=== PATIENT | female | born 1955 | race African-American/Black ===

== ENCOUNTER 2019-12-24 04:56 | Emergency (ER) | payer OTHER ==
[2019-12-24 06:10] VITALS: TEMP 99.1; BMI 35.5
[2019-12-24] MEDS ORDERED: ACETAMINOPHEN 1000 MG/100 ML VIAL (NON FORMULARY) IVPB ONE (07:35)
[2019-12-24] MEDS ORDERED: METOCLOPRAMIDE HCL INJECTION 10 MG/2 ML VIAL IVPUSH ONE (07:35)
[2019-12-24] MEDS ORDERED: ACETAMINOPHEN INJECTION 100 ML IVPB ONE (07:39)
--- NOTE | 2019-12-24 07:47 | PDOC ---
History of Present Illness - General Chief Complaint: Headache Stated Complaint: HEAD PAIN Time Seen by Provider: 12/24/19 07:08 History Source: Patient Exam Limitations: No Limitations - History of Present Illness Initial Comments: 12/24/19 07:43 63y F with PMH of CAD s/p stent x2, HTN, Asthma, DM, presenting to ED for SHAFER. Pt has been having this headache for a year but got worse last night approximately 12h ago. Pt says she was laying in bed when it happened. She describes the pain as sharp, shooting pains from the forehead to the occipital region. She was taking Tylenol before but it did not help this time. She denies changes in vision, photophobia, phonophobia, thunderclap SHAFER, head injuries, weakness, numbness/tingling, ataxia, facial pain, abdominal pain, n/v, chest pain, sob, fevers/chills. She recently had cough, congestion and vomiting earlier this week. Has not seen neurology. PMD: At [place] PMH: see hpi PSH: stent, back surgery, knee surgery Meds: see med rec Allergies: nkda Social: smokes 2 cigarettes/day Past History - Past Medical History Allergies/Adverse Reactions: Allergies Allergy/AdvReac Type Severity Reaction Status Date / Time No Known Allergies Allergy Verified 12/24/19 06:10 Home Medications: Ambulatory Orders Albuterol Sulfate Inhaler - [Ventolin HFA Inhaler -] 1 - 2 inh PO DAILY PRN 02/24 Gabapentin 100 mg PO TID 06/16/14 Salmeterol/Fluticasone [Advair 250Mcg/50Mcg -] 1 inh IH DAILY 06/16/14 Tolterodine Tartrate [Detrol LA] 4 mg PO DAILY 06/16/14 Clopidogrel Bisulfate [Plavix -] 75 mg PO DAILY #30 tablet 08/15/14 Risperidone [Risperdal -] 3 mg PO DAILY #0 tablet 08/15/14 Iron/C/B12/Calciu/Stomach Conc [Multigen Caplet] 1 each PO DAILY 07/24/15 Lisinopril [Zestril] 5 mg PO DAILY 07/24/15 Montelukast Na [Singulair -] 10 mg PO HS 07/24/15 Pravastatin Sodium [Pravachol -] 80 mg PO HS 07/24/15 Aspirin 81 mg PO DAILY 12/24/19 Bupropion HCl [Bupropion Xl] 150 mg PO DAILY 12/24/19 Anemia: No Asthma: Yes Cancer: No Cardiac Disorders: Yes (STENTS PLACED 1993) CVA: No COPD: No CHF: No Dementia: No Diabetes: Yes GI Disorders: No Disorders: Yes (SEES KIDNEY R/T ALL THE MEDS SHE IS ON) HTN: Yes Hypercholesterolemia: Yes Liver Disease: No Seizures: No Thyroid Disease: No - Surgical History Abdominal Surgery: No Appendectomy: No Cardiac Surgery: Yes (STENT PLACEMENT 20 YRS AGO) Cholecystectomy: No Lung Surgery: No Neurologic Surgery: No Orthopedic Surgery: No - Immunization History Immunization Up to Date: No - Psycho Social/Smoking Cessation Hx Smoking History: Never smoked Have you smoked in the past 12 months: Yes Number of Cigarettes Smoked Daily: 2 If you are a former smoker, when did you quit?: DOESN'T WANT THE BOOKLET 'Breaking Loose' booklet given: 07/24/15 Hx Alcohol Use: No Drug/Substance Use Hx: No Substance Use Type: None Hx Substance Use Treatment: No Review of Systems - Review of Systems Constitutional: No: Symptoms Reported HEENTM: No: Symptoms Reported Respiratory: No: Symptoms reported Cardiac (ROS): No: Symptoms Reported ABD/GI: No: Symptoms Reported : No: Symptoms Reported Musculoskeletal: No: Symptoms Reported Integumentary: No: Symptoms Reported Neurological: Yes: See HPI *Physical Exam - Vital Signs Last Vital Signs Temp Pulse Resp BP Pulse Ox 99.1 F 99 H 18 125/59 L 96 12/24/19 05:00 12/24/19 05:00 12/24/19 05:00 12/24/19 05:00 12/24/19 05:00 - Physical Exam General Appearance: Yes: Nourished, Appropriately Dressed, Moderate Distress HEENT: positive: EOMI, KEITH, Normal ENT Inspection Neck: positive: Trachea midline, Supple. negative: Lymphadenopathy (R), Lymphadenopathy (L) Respiratory/Chest: positive: Lungs Clear, Normal Breath Sounds. negative: Crackles, Rales, Rhonchi, Stridor, Wheezing Cardiovascular: positive: Regular Rhythm, Regular Rate, S1, S2. negative: Edema , JVD, Murmur Gastrointestinal/Abdominal: positive: Normal Bowel Sounds, Soft. negative: Tender Musculoskeletal: negative: CVA Tenderness Extremity: positive: Normal Capillary Refill. negative: Pedal Edema, Swelling, Calf Tenderness Integumentary: positive: Normal Color, Dry, Warm Neurologic: positive: heel painter II-XII NML intact, Fully Oriented, Alert, Normal Mood/ Affect, Normal Response, Motor Strength 5/5. negative: Facial Droop, Numbness, Sensory Deficit, Confused, Disoriented ED Treatment Course - LABORATORY CBC & Chemistry Diagram: 12/24/19 07:45 12/24/19 07:45 - RADIOLOGY Radiology Studies Ordered: Category Date Time Status HEAD CT WITHOUT CONTRAST [CT] Stat CT Scan 12/24/19 07:34 Ordered Medical Decision Making - Medical Decision Making 12/24/19 08:46 63 y F with CAD, HTN, DM, Asthma presenting to ED for SHAFER. similar to prior SHAFER but not resolved with Tylenol today. Intermittent. Vitals: temp 99.1, HR 99 low suspicion for meningitis: no meningeal signs, no fever, no rigidity. Low suspicion for SAH (typical SHAFER just not relieved by Tylenol), suspect acute on chronic SHAFER. given no neuro f/u and previous imaging, will obtain CT head and basic labs -ofirmev and reglan -basic labs. labs wnl. Cr 1.6 (1.5 5y ago). pt likely has CKD. will reassess. 12/24/19 10:30 pt feeling better. No acute findings on CT. no bleeding or lesions. pt is ambulatory and neurologically intact, has pmd f/u. Neurology referral provided. Pt advised to take Tylenol for pain q4 prn. given copy of ct report. dispo: home Discharge - Discharge Information Problems reviewed: Yes Clinical Impression/Diagnosis: Headache Qualifiers: Headache type: unspecified Headache chronicity pattern: chronic headache Intractability: not intractable Qualified Code(s): R51 - Headache Condition: Fair Disposition: HOME - Admission No - Follow up/Referral Referrals: Skip Otero MD [Primary Care Provider] - Asif Villalobos MD [Staff Physician] - Chris Blake MD [Staff Physician] - Shelton Spencer MD [Staff Physician] - Hollie Jimenez MD [Staff Physician] - Rajesh Arevalo MD [Staff Physician] - - Patient Discharge Instructions Patient Printed Discharge Instructions: DI for Headache Additional Instructions: You were seen in the ER for headaches. The CT scan does not show anything abnormal. I highly recommend follow up with your primary care doctor this week regarding your headaches. I also recommend seeing a neurologist. Referrals are provided below. You can take Tylenol every 4 hours as needed for the pain. Keep yourself well hydrated. Come back to the emergency room if headaches get worse, you pass out, you have difficulty walking, you develop fever or if any new or concerning symptom develops. Thank you - Post Discharge Activity
[2019-12-24] MEDS ORDERED: METOCLOPRAMIDE HCL INJECTION 10 MG/2 ML VIAL ONE (07:52)
[2019-12-24 08:07] LABS: BASO % 0.5 % (0-2.0); HEMOGLOBIN 10.2 GM/dL (10.7-15.3); LYMPH % 13.2 % (8-40); MCH 29.4 pg (25.7-33.7); MCHC 34.1 g/dl (32.0-36.0); MEAN CELL VOLUME 86.2 fl (80-96); MEAN PLT VOLUME 7.4 fl (7.5-11.1); NEUT % 73.3 % (42.8-82.8); PLATELET COUNT 237 K/MM3 (134-434); RBC 3.48 M/mm3 (3.60-5.2); WHITE BLOOD COUNT 6.2 K/mm3 (4.0-10.0)
[2019-12-24 08:39] LABS: ALBUMIN 3.5 g/dl (3.4-5.0); BILIRUBIN,TOTAL 0.2 mg/dL (0.2-1); BLOOD UREA NITROGEN 25.4 mg/dL (7-18); CALCIUM 9.3 mg/dL (8.5-10.1); CREATININE 1.6 mg/dL (0.55-1.3); POTASSIUM 4.2 mmol/L (3.5-5.1); TOT PROT 7.1 g/dl (6.4-8.2)
--- NOTE | 2019-12-24 08:47 | PDOC ---
Attending Attestation - Resident Resident Name: Anushka Rios - ED Attending Attestation I have performed the following: I have examined & evaluated the patient, The case was reviewed & discussed with the resident, I agree w/resident's findings & plan - HPI HPI: 12/24/19 08:45 63-year-old female with history of hypertension presents with headache, acute on chronic. Patient has had headache syndrome for about 1 year, occurs intermittently, typically resolves with Tylenol and is short-lived. Headache is described as sharp, radiating from right cheondoism to occiput, never associated with any fever/chills/vision change/neck stiffness/speech change/focal deficit. No injuries. Patient had her typical headache onset last night around 7 PM, took Tylenol but without relief, so she presents for evaluation. Patient has never seen a neurologist or had brain imaging to her recollection. Other than headache, she has no complaints. - Physicial Exam PE: 12/24/19 08:46 Vital signs are within normal limits, temp 99.1. Patient is well-appearing resting comfortably in stretcher, easily arousable to voice No sinus tenderness Pupils equal round reactive to light, extraocular movements are intact, neck is supple NEURO: Mental status: The patient is alert and oriented x3. Cranial nerves: Cranial nerves II through XII are intact Motor: The upper extremities are 5 over 5 in all muscle groups. The lower extremities are 5 over 5 in all muscle groups. No pronator drift. Sensation: Sensation is intact to light touch throughout. Cerebellar: [id number]-[id number] is normal in both upper extremities. Heel-knee- pedersen is normal in both lower extremities. Reflexes: 2+ and symmetric in the upper and lower extremities. Gait: Normal. Heel and toe walking are normal. Tandem gait is normal. - Medical Decision Making 12/24/19 08:46 63-year-old female with acute on chronic headache, no other red flags on history or physical exam. Presentation likely represents underlying primary headache syndrome, not consistent with infectious etiology but can consider sinusitis. Given age and history of headache without imaging, will check CT head IV fluids, IV Tylenol Reassess. If above is within normal limits, can discharge with neurology follow -up
[2019-12-24 10:24] VITALS: BP 106/48; PULSE 76
== END 2019-12-24 10:24 | disposition home or self-care (01) ==
LOC: JER 04:56
PROC: 3E033NZ Introduction of Analgesics, Hypnotics, Sedatives into Peripheral Vein, Percutaneous Approach (ICD-10-PCS; principal; 2019-12-24)
PROC: 3E033GC Introduction of Other Therapeutic Substance into Peripheral Vein, Percutaneous Approach (ICD-10-PCS; 2019-12-24)
DX: G44.89 Other headache syndrome (principal); I25.10 Atherosclerotic heart disease of native coronary artery without angina pectoris; I10 Essential (primary) hypertension; Z95.5 Presence of coronary angioplasty implant and graft; J45.909 Unspecified asthma, uncomplicated; E11.9 Type 2 diabetes mellitus without complications; E78.00 Pure hypercholesterolemia, unspecified; Z87.448 Personal history of other diseases of urinary system; Z79.02 Long term (current) use of antithrombotics/antiplatelets; Z72.0 Tobacco use
CPT/HCPCS: 36415; 70450-TC; 80053; 85025; 96374; 96375; 99284-25; J0131

== ENCOUNTER 2022-02-16 21:08 | Observation (INO) | payer OTHER ==
[2022-02-16 21:27] VITALS: BMI 35.6
[2022-02-16] MEDS ORDERED: ACETAMINOPHEN 1000 MG/100 ML BAG IVPB ONE (22:09)
[2022-02-16] MEDS ORDERED: ACETAMINOPHEN INJECTION 100 ML IVPB ONE (22:47)
[2022-02-16 22:50] LABS: BASO % 1.4 % (0-2.0); EOS % 2.5 % (0-4.5); HEMOGLOBIN 11.1 GM/dL (10.7-15.3); LYMPH % 39.4 % (8-40); MCH 28.1 pg (25.7-33.7); MCHC 32.7 g/dl (32.0-36.0); MEAN CELL VOLUME 85.9 fl (80-96); MEAN PLT VOLUME 7.9 fl (7.5-11.1); MONO % 6.8 % (3.8-10.2); NEUT % 49.9 % (42.8-82.8); PLATELET COUNT 286 10^3/uL (134-434); RBC 3.95 M/mm3 (3.60-5.2); RDW 15.2 % (11.6-15.6); WHITE BLOOD COUNT 11.7 K/mm3 (4.0-10.0)
[2022-02-16 22:53] LABS: INR 1.06 (0.83-1.09); PROTHROMBIN TIME (PATIENT) 12.2 SEC (9.7-13.0)
[2022-02-16 22:55] LABS: ACTIVATED PTT 30.7 SECONDS (25.2-36.5)
[2022-02-16 23:10] LABS: ALBUMIN 3.6 g/dl (3.4-5.0); CALCIUM 9.5 mg/dL (8.5-10.1); MAGNESIUM 2.1 mg/dL (1.8-2.4)
[2022-02-16 23:12] LABS: CREATININE 1.4 mg/dL (0.55-1.3)
[2022-02-16 23:15] LABS: BILIRUBIN,TOTAL 0.5 mg/dL (0.2-1); TOT PROT 7.4 g/dl (6.4-8.2)
[2022-02-17 00:20] VITALS: BP 124/66; PULSE 57
[2022-02-17] MEDS ORDERED: ASPIRIN 81 MG CHEWABLE TABLETS PO ONE (00:56)
[2022-02-17 01:03] VITALS: TEMP 98.7
[2022-02-17] MEDS ORDERED: ASPIRIN 81 MG CHEWABLE TABLETS ONE (02:39)
== END 2022-02-17 06:30 | disposition home or self-care (01) ==
LOC: JER 21:08 → JERBED 02-17 00:53
PROVIDERS: ADMIT Hospitalist; ATTEND Hospitalist
PROC: 3E03329 Introduction of Other Anti-infective into Peripheral Vein, Percutaneous Approach (ICD-10-PCS; principal; 2022-02-17)
PROC: 3E033NZ Introduction of Analgesics, Hypnotics, Sedatives into Peripheral Vein, Percutaneous Approach (ICD-10-PCS; 2022-02-17)
DX: J18.9 Pneumonia, unspecified organism (principal); I11.9 Hypertensive heart disease without heart failure; J45.909 Unspecified asthma, uncomplicated; R07.9 Chest pain, unspecified; E78.5 Hyperlipidemia, unspecified; I25.10 Atherosclerotic heart disease of native coronary artery without angina pectoris; F17.210 Nicotine dependence, cigarettes, uncomplicated; Z95.5 Presence of coronary angioplasty implant and graft
CPT/HCPCS: 36415; 71046-TC-FY; 71275-TC; 80053; 83735; 84484; 85025; 85610; 85730; 87040; 93005; 93010; 96365; 96375; 99285-25; C9803-CS; G0378; U0003; U0005

== ENCOUNTER 2022-03-10 22:17 | Emergency (ER) | payer OTHER ==
[2022-03-10 22:21] VITALS: BP 163/74; PULSE 83; TEMP 97.6; BMI 35.6
[2022-03-10] MEDS ORDERED: METOCLOPRAMIDE HCL INJECTION 10 MG/2 ML VIAL IM ONE (23:12)
[2022-03-10] MEDS ORDERED: METOCLOPRAMIDE HCL INJECTION 10 MG/2 ML VIAL ONE (23:29)
[2022-03-11] MEDS ORDERED: KETOROLAC TROMETHAMINE 15 MG/ML VIAL IM ONE (01:08)
[2022-03-11] MEDS ORDERED: KETOROLAC TROMETHAMINE 15 MG/ML VIAL ONE (01:09)
== END 2022-03-11 02:21 | disposition home or self-care (01) ==
LOC: JER 22:17
PROC: 3E023GC Introduction of Other Therapeutic Substance into Muscle, Percutaneous Approach (ICD-10-PCS; principal; 2022-03-10)
DX: R51.9 Headache, unspecified (principal)
CPT/HCPCS: 99284-25

== ENCOUNTER 2022-03-11 16:35 | Emergency (ER) | payer OTHER ==
[2022-03-11 16:53] VITALS: BP 180/76; PULSE 63; TEMP 98.4; BMI 35.6
[2022-03-11] MEDS ORDERED: METOCLOPRAMIDE HCL INJECTION 10 MG/2 ML VIAL IVPB ONE (18:34)
[2022-03-11] MEDS ORDERED: ACETAMINOPHEN 1000 MG/100 ML BAG IVPB ONE (18:34)
[2022-03-11] MEDS ORDERED: LACTATED RINGERS SOLUTION 1000 ML INFUS.BAG IV ONE (18:34)
[2022-03-11] MEDS ORDERED: carBAMazepine 100 MG TAB.CHEW PO ONE (18:46)
[2022-03-11] MEDS ORDERED: carBAMazepine 200 MG TABLET ONE ×2 (18:57→19:26)
[2022-03-11] MEDS ORDERED: METOCLOPRAMIDE HCL INJECTION 10 MG/2 ML VIAL ONE (18:57)
[2022-03-11] MEDS ORDERED: ACETAMINOPHEN INJECTION 100 ML IVPB ONE (18:57)
== END 2022-03-11 21:51 | disposition home or self-care (01) ==
LOC: JER 16:35
PROC: 3E033GC Introduction of Other Therapeutic Substance into Peripheral Vein, Percutaneous Approach (ICD-10-PCS; principal; 2022-03-11)
DX: R51.9 Headache, unspecified (principal)
CPT/HCPCS: 70450-TC; 99285-25

== ENCOUNTER 2024-03-29 04:19 | Day surgery (SDC) | payer OTHER ==
[2024-03-18 12:21] VITALS: BMI 35.6
[~2024-03-29 04:19] MED LIST: ACETAMINOPHEN 500 MG TABLET (FP) PO PRN
[2024-03-29] MEDS ORDERED: LIDOCAINE HCL/PF 2% SDV 5ML VIAL ONE (07:25)
[2024-03-29] MEDS ORDERED: DEXAMETHASONE SOD PHOSPHATE 10 MG/1 ML VIAL ONE (07:25)
[2024-03-29] MEDS ORDERED: LIDOCAINE HCL/PF 1% SDV 5ML VIAL ONE (07:25)
[2024-03-29] MEDS ORDERED: BUPIVACAINE HCL/PF 0.75% 10 ML VIAL ONE (07:25)
[2024-03-29 08:01] VITALS: RESP 18
[2024-03-29] MEDS: LIDOCAINE HCL 1%, 10 MG/ML (20ML VIAL) SQ ONE ×2 (09:00→09:38)
[2024-03-29 11:31] VITALS: BP 123/69; PULSE 59; TEMP 97.1
[2024-03-29] MEDS ORDERED: ACETAMINOPHEN 500 MG TABLET (FP) PO PRN (15:09)
== END 2024-03-29 10:55 | disposition home or self-care (01) ==
LOC: JASU-SURG 04:19
PROVIDERS: ATTEND Pain Medicine Pain Medicine
PROC: 01HY3MZ Insertion of Neurostimulator Lead into Peripheral Nerve, Percutaneous Approach (ICD-10-PCS; principal; 2024-03-29 08:45)
DX: G89.4 Chronic pain syndrome (principal); M25.562 Pain in left knee
CPT/HCPCS: 64555; C1778; J1100

== ENCOUNTER 2024-05-24 04:14 | Day surgery (SDC) | payer OTHER ==
[2024-05-22 13:28] VITALS: BMI 34.4
[2024-05-24 07:24] VITALS: RESP 18
[2024-05-24] MEDS ORDERED: LIDOCAINE HCL/PF 2% SDV 5ML VIAL ONE (07:31)
[2024-05-24] MEDS ORDERED: BUPIVACAINE HCL/PF 0.25% (2.5MG/ML) 10 ML VIAL ONE (07:31)
[2024-05-24] MEDS ORDERED: DEXAMETHASONE SOD PHOSPHATE 4 MG/1 ML VIAL ONE (07:31)
[2024-05-24] MEDS ORDERED: TRIAMCINOLONE ACET 40MG/1ML VIAL ONE (07:31)
[2024-05-24] MEDS ORDERED: BUPIVACAINE HCL/PF 0.5% (5MG/ML) 10 ML VIAL ONE (07:32)
[2024-05-24] MEDS ORDERED: BUPIVACAINE HCL/PF 0.75% 10 ML VIAL ONE (07:32)
[2024-05-24] MEDS ORDERED: LIDOCAINE HCL/PF 1% SDV 5ML VIAL ONE (07:32)
[2024-05-24] MEDS ORDERED: DEXAMETHASONE SOD PHOSPHATE 10 MG/1 ML VIAL ONE (07:33)
[2024-05-24] MEDS ORDERED: ACETAMINOPHEN 500 MG TABLET (FP) PO PRN (08:49)
[2024-05-24] MEDS: LIDOCAINE 1% P/F 10 MG/ML VIAL PNB ONE ×2 (09:33)
[2024-05-24 10:36] VITALS: BP 115/40; PULSE 50; TEMP 97.4
== END 2024-05-24 10:28 | disposition home or self-care (01) ==
LOC: JASU-SURG 04:14
PROVIDERS: ATTEND Pain Medicine Pain Medicine
PROC: 01HY3MZ Insertion of Neurostimulator Lead into Peripheral Nerve, Percutaneous Approach (ICD-10-PCS; principal; 2024-05-24 08:30)
DX: G89.4 Chronic pain syndrome (principal); M25.562 Pain in left knee
CPT/HCPCS: 64555; C1778; J1100

== ENCOUNTER 2024-08-01 04:33 | Day surgery (SDC) | payer OTHER ==
[2024-07-31 13:24] VITALS: BMI 34.4
[2024-08-01 10:17] VITALS: TEMP 97.1
[2024-08-01] MEDS ORDERED: ACETAMINOPHEN INJECTION 100 ML ONE (12:04)
[2024-08-01] MEDS ORDERED: DEXMEDETOMIDINE HCL 200 MCG/2 ML IVPB ONE (12:05)
[2024-08-01] MEDS ORDERED: ACETAMINOPHEN 500 MG TABLET (FP) PO PRN (12:20)
[2024-08-01] MEDS ORDERED: MIDAZOLAM HCL 2 MG/2 ML SINGLE DOSE VIAL ONE (14:07)
[2024-08-01] MEDS ORDERED: METOCLOPRAMIDE HCL INJECTION 10 MG/2 ML VIAL ONE (14:13)
[2024-08-01] MEDS ORDERED: ceFAZolin SODIUM 1 GM VIAL ONE (14:13)
[2024-08-01] MEDS ORDERED: ONDANSETRON 4 MG/2 ML VIAL ONE (14:13)
[2024-08-01] MEDS: ceFAZolin SODIUM 1 GM VIAL IVPB ONE (14:15)
[2024-08-01] MEDS: LIDOCAINE HCL 1% PRESERVATIVE FREE - 30ML VIAL IJ ONE (14:23)
[2024-08-01] MEDS: LIDOCAINE HCL 2% (50ML VIAL) NR ONE (14:52)
[2024-08-01 15:44] VITALS: BP 90/55
[2024-08-01 15:58] VITALS: PULSE 50; RESP 18
== END 2024-08-01 16:37 | disposition home or self-care (01) ==
LOC: JASU-SURG 04:33
PROVIDERS: ATTEND Pain Medicine Pain Medicine
PROC: 00HU3MZ Insertion of Neurostimulator Lead into Spinal Canal, Percutaneous Approach (ICD-10-PCS; principal; 2024-08-01 12:00)
DX: M96.1 Postlaminectomy syndrome, not elsewhere classified (principal)
CPT/HCPCS: 63650; C1778; 76000-TC-FY; C1889; C1897; J0131

== ENCOUNTER 2024-08-16 08:26 | Emergency (ER) | payer OTHER ==
[2024-08-16 08:31] VITALS: BP 151/80; PULSE 58; RESP 18; TEMP 97.1; BMI 33.8
[2024-08-16 09:31] LABS: EPI CELLS 8 /uL (0-25.1); HYALINE CASTS 1 /uL (0-3.1); PH,URINE 5.5 (5.0-8.0); URINE APPEARANCE CLOUDY; URINE BACTERIA 170 /uL (0-1359); URINE BILIRUBIN NEGATIVE (NEGATIVE); URINE COLOR RED; URINE GLUCOSE (UA) NEGATIVE (NEGATIVE); URINE KETONE NEGATIVE (NEGATIVE); URINE LEUK ESTERASE TRACE (NEGATIVE); URINE NITRITE NEGATIVE (NEGATIVE); URINE PROTEIN 1+ (NEGATIVE); URINE RBC 19188 /uL (0-23.9); URINE WBC 285 /uL (0-25.8)
[2024-08-16 10:10] LABS: BASO % 0.8 % (0-2.0); HEMATOCRIT 35.5 % (32.4-45.2); HEMOGLOBIN 11.6 GM/dL (10.7-15.3); MCH 28.3 pg (25.7-33.7); MCHC 32.8 g/dl (32.0-36.0); MEAN CELL VOLUME 86.2 fl (80-96); MEAN PLT VOLUME 7.5 fl (7.5-11.1); MONO % 6.3 % (3.8-10.2); NEUT % 54.9 % (42.8-82.8); PLATELET COUNT 274 10^3/uL (134-434); RBC 4.12 M/mm3 (3.60-5.2); RDW 15.4 % (11.6-15.6)
[2024-08-16 10:34] LABS: POTASSIUM 5.6 mmol/L (3.5-5.1)
[2024-08-16 10:37] LABS: CALCIUM 9.4 mg/dL (8.5-10.1)
[2024-08-16 10:38] LABS: ALBUMIN 3.6 g/dl (3.4-5.0); BLOOD UREA NITROGEN 31.5 mg/dL (7-18)
[2024-08-16 10:41] LABS: CREATININE 1.4 mg/dL (0.55-1.3)
[2024-08-16 10:42] LABS: BILIRUBIN,TOTAL 0.3 mg/dL (0.2-1); TOT PROT 7.6 g/dl (6.4-8.2)
[2024-08-16] MEDS ORDERED: CEPHALEXIN MONOHYDRATE 500 MG CAPSULE (UD) ONE (13:24)
[2024-08-16] MEDS: CEPHALEXIN MONOHYDRATE 500 MG CAPSULE (UD) PO ONE (13:25)
== END 2024-08-16 13:30 | disposition home or self-care (01) ==
LOC: JER 08:26
DX: N30.91 Cystitis, unspecified with hematuria (principal)
CPT/HCPCS: 36415; 74176-TC; 80053; 81003; 84132; 85025; 87086; 99284-25

== ENCOUNTER 2024-08-30 04:03 | Day surgery (SDC) | payer OTHER ==
[2024-08-28 11:19] VITALS: BMI 33.8
[2024-08-30] MEDS ORDERED: LIDOCAINE HCL/PF 2% SDV 5ML VIAL ONE (10:26)
[2024-08-30] MEDS ORDERED: GENTAMICIN SO4 80 MG/2 ML VIAL ONE (10:26)
[2024-08-30] MEDS ORDERED: VANCOMYCIN 1,000 MG VIAL (RESTRICTED TO ID ONLY) ONE (10:26)
[2024-08-30] MEDS ORDERED: LIDOCAINE HCL/PF 1% SDV 5ML VIAL ONE (10:27)
[2024-08-30] MEDS ORDERED: BUPIVACAINE HCL/PF 0.25% (2.5MG/ML) 10 ML VIAL ONE (10:27)
[2024-08-30] MEDS ORDERED: ACETAMINOPHEN 500 MG TABLET (FP) PO PRN (10:57)
[2024-08-30] MEDS ORDERED: DEXMEDETOMIDINE HCL 200 MCG/2 ML IVPB ONE (12:13)
[2024-08-30] MEDS ORDERED: MIDAZOLAM HCL 2 MG/2 ML SINGLE DOSE VIAL ONE ×2 (12:32→13:43)
[2024-08-30] MEDS: ceFAZolin SODIUM 1 GM VIAL IVPB ONE ×2 (12:58→13:01)
[2024-08-30] MEDS: LIDOCAINE HCL 1% PRESERVATIVE FREE - 30ML VIAL IJ ONE (13:09)
[2024-08-30] MEDS: LIDOCAINE HCL/PF 2% SDV 5ML VIAL INF ONE (13:28)
[2024-08-30] MEDS ORDERED: KETAMINE HCL 200 MG/20 ML VIAL ONE (13:52)
[2024-08-30] MEDS: VANCOMYCIN 1,000 MG VIAL (RESTRICTED TO ID ONLY) IVPB ONE ×2 (14:08)
[2024-08-30] MEDS ORDERED: LACTATED RINGERS SOLUTION 1,000 ML IV SCH (15:00)
[2024-08-30 17:13] VITALS: PULSE 64; RESP 18
[2024-08-30 17:15] VITALS: BP 160/70; TEMP 97
== END 2024-08-30 17:27 | disposition home or self-care (01) ==
LOC: JASU-SURG 04:03
PROVIDERS: ATTEND Pain Medicine Pain Medicine
PROC: 00HU3MZ Insertion of Neurostimulator Lead into Spinal Canal, Percutaneous Approach (ICD-10-PCS; principal; 2024-08-30 11:45)
DX: M96.1 Postlaminectomy syndrome, not elsewhere classified (principal)
CPT/HCPCS: 63650; 63685; C1778; 76000-TC-FY; 94760; C1767

== ENCOUNTER 2025-01-09 07:09 | Day surgery (SDC) | payer OTHER ==
[2025-01-08 16:19] VITALS: BMI 33.3
[2025-01-09] MEDS ORDERED: LIDOCAINE HCL/PF 1% SDV 5ML VIAL ONE (07:38)
[2025-01-09] MEDS ORDERED: DEXAMETHASONE SOD PHOSPHATE 10 MG/1 ML VIAL ONE (07:38)
[2025-01-09] MEDS ORDERED: ACETAMINOPHEN 500 MG TABLET (FP) PO PRN (09:42)
[2025-01-09] MEDS: LIDOCAINE HCL 1% PRESERVATIVE FREE - 30ML VIAL IJ ONE ×2 (10:54)
[2025-01-09] MEDS: IOHEXOL 180 MG/1 ML ML IT ONE ×2 (10:55)
[2025-01-09] MEDS: BUPIVACAINE HCL/PF 0.5% (5MG/ML) 10 ML VIAL IJ ONE ×2 (10:56)
[2025-01-09] MEDS: TRIAMCINOLONE ACET 40MG/1ML VIAL IM ONE ×2 (10:56)
[2025-01-09 11:23] VITALS: BP 134/44
[2025-01-09 12:06] VITALS: PULSE 72; RESP 18; TEMP 97
== END 2025-01-09 12:30 | disposition home or self-care (01) ==
LOC: JASU-SURG 07:09
PROVIDERS: ATTEND Pain Medicine Pain Medicine
PROC: 3E0U3BZ Introduction of Anesthetic Agent into Joints, Percutaneous Approach (ICD-10-PCS; 2025-01-09)
PROC: 3E0U33Z Introduction of Anti-inflammatory into Joints, Percutaneous Approach (ICD-10-PCS; principal; 2025-01-09 10:30)
DX: M16.11 Unilateral primary osteoarthritis, right hip (principal)
CPT/HCPCS: 76000-TC-FY; J1100

== ENCOUNTER 2025-05-08 11:19 | Emergency (ER) | payer OTHER ==
[2025-05-08 11:38] VITALS: BP 106/47; PULSE 72; RESP 18; BMI 32.5
[2025-05-08 11:40] VITALS: TEMP 98.1
== END 2025-05-08 14:15 | disposition home or self-care (01) ==
LOC: JER 11:19
DX: R60.0 Localized edema (principal); R00.1 Bradycardia, unspecified
CPT/HCPCS: 93005; 93010; 93971-TC; 99284-25